=== PATIENT | male | born 1955 | race Caucasian/White ===

== ENCOUNTER 2020-01-22 08:20 | Outpatient (CLI) | payer BC, SELFPAY ==
--- NOTE | 2020-01-22 08:48 | ECG_ITS ---
Measurements Intervals [place] Rate: 57 P: 51 AL: 165 QRS: 24 QRSD: 98 T: 8 QT: 393 QTc: 384 Interpretive Statements SINUS BRADYCARDIA BORDERLINE ST ABNORMALITY- INFERIOR LEADS BORDERLINE ECG Electronically Signed On 01-22-2020 11:14:46 CDT by Cosme Aguilar D.O.
[2020-01-22 09:02] LABS: Add Urine Microscopic? NO; Appearance Urine Clear (Clear); Bilirubin Urine Negative (Negative); Blood Urine Negative (Negative); Color Urine Yellow (Yellow); Glucose Urine UA Negative (Negative); Ketones Urine Negative (Negative); Leukocyte Esterase Ur Negative LEU/UL (NEGATIVE); Nitrate Urine Negative (Negative); Protein Urine Negative (Negative); Specific Grav Ur 1.018 (1.001-1.035); Urobilinogen Urine Negative mg/dL (<2.0)
[2020-01-22 09:04] LABS: Basophils Percent Auto 0.7 % (0.2-1.2); Eosinophils Absolute Auto 0.2 K/mm3 (0-0.3); Eosinophils Percent Auto 3.6 % (0-4.4); Hematocrit 48.7 % (42.0-52.0); Hemoglobin 16.6 g/dL (14.0-18.0); Immature Granulocyte Absolute 0.01 K/mm3 (0.00-0.031); Immature Granulocyte Percent A 0.2 % (0-0.5); Lymphocytes Absolute Auto 1.84 K/mm3 (0.9-3.2); Lymphocytes Percent Auto 31.2 % (18.3-44.2); Mean Corpuscular HGB Conc 34.1 g/dl (32-36); Mean Corpuscular Hemoglobin 32.6 pg (26-34); Mean Corpuscular Volume 95.7 fl (80-100); Mean Platelet Volume 10.9 fl (7.4-10.4); Monocytes Absolute Auto 0.6 K/mm3 (0.1-0.6); Monocytes Percent Auto 10.7 % (2.6-8.5); Neutrophils Absolute Auto 3.2 K/mm3 (1.3-6.7); Neutrophils Percent Auto 53.6 % (45.5-73.1); Platelet Count Result 194 k/mm3 (150-375); Red Blood Count 5.09 M/mm3 (4.6-6.20); Red Cell Distribution Width 13.4 % (11.5-14.5); White Blood Count 5.9 K/mm3 (4.5-10.0)
[2020-01-22 09:16] LABS: Alanine Aminotransferase 35 U/L (4-50); Albumin Level 4.5 g/dL (3.5-5.1); Alkaline Phosphatase 45 U/L (38-126); Anion Gap 7 mmol/L (8-16); Aspartate Amino Transferase 39 U/L (17-59); Bilirubin,Total 1.5 mg/dL (0.2-1.3); Blood Urea Nitrogen 18 mg/dL (9-20); Calcium 9.1 mg/dL (8.4-10.2); Carbon Dioxide 28 mmol/L (22-30); Chloride 100 mmol/L (98-107); Cholesterol 164 mg/dL (0-200); Estimated Glomerular Filt Rate > 60; Glucose 96 mg/dL (75-110); HDL Direct 62 mg/dL; Sodium 135 mmol/L (137-145); Triglycerides 55 mg/dL (<150)
[2020-01-22 09:25] LABS: LDL Cholesterol Direct 90 mg/dL
[2020-01-22 09:29] LABS: Potassium 4.4 mmol/L (3.4-5.0)
[2020-01-22 09:44] LABS: Prostate Specific Antigen 0.4 ng/mL (< OR = 4.0)
[2020-01-26 11:00] LABS: Testosterone Free 231.4 pg/mL (46.0-224.0); Testosterone Total 1051 ng/dL (250-1100)
== END 2020-01-22 08:21 | disposition home or self-care (01) ==
LOC: ANHLAB 08:25
PROVIDERS: PCP Internal Medicine; Visit Provider Internal Medicine
DX: E78.5 Hyperlipidemia, unspecified (principal); M19.022 Primary osteoarthritis, left elbow; Z76.89 Persons encountering health services in other specified circumstances; Z12.5 Encounter for screening for malignant neoplasm of prostate
CPT/HCPCS: 36415; 80053; 80061; 81003; 84153; 84402; 84403; 84443; 85025; 93005; G0103

== ENCOUNTER 2024-11-18 16:21 | Outpatient (CLI) | payer MEDICARE, OTHER, SELFPAY ==
--- NOTE | ~2024-11-18 | CT_ITS ---
EXAMINATION: CT shoulder RT wo con DATE: 11/18/2024 16:48 INDICATION: Shoulder lesion TECHNIQUE: High resolution computed tomography (CT) of the right shoulder was performed without intra venous contrast. Additional sagittal and coronal reconstructions were performed. Dose Arpit The dose-length product was 394.99 mGy-cm. COMPARISON: None FINDINGS: Bone alignment is normal. No fracture. Mild cystic change along the anterior facet of the greater tub erosity which can be seen in setting of rotator cuff disease. No other suspicious lytic or blastic yolie ne lesions. Specifically no lesion corresponding to the region of concern at the scapular body. Mild glenohumeral osteoarthritis with mild nonuniform joint space narrowing and marginal osteophytes along the posterior and posterior inferior rim of the glenoid. No glenohumeral joint effusion. Moderate ac romioclavicular osteoarthritis. No asymmetric atrophy of the musculature of the rotator cuff or shoul hayden girdle. No pathologically enlarged right axillary or hilar lymphadenopathy. Visualized portions o f the lungs are clear. IMPRESSION: 1. No suspicious lytic or blastic bone lesions. Specifically no correlate for the artifactual appeara nce of expansile lytic lesion at the scapular body. 2. Mild right glenohumeral and moderate acromioclavicular osteoarthritis. Reviewed, dictated and finalized at location A. IMPRESSION: 1. No suspicious lytic or blastic bone lesions. Specifically no correlate for t he artifactual appearance of expansile lytic lesion at the scapular body. 2. Mild right glenohumeral and moderate acromioclavicular osteoarthritis.
== END 2024-11-18 16:22 | disposition home or self-care (01) ==
PROVIDERS: PCP Family Medicine; Visit Provider Nurse Practitioner Family
DX: M75.91 Shoulder lesion, unspecified, right shoulder (principal); M19.011 Primary osteoarthritis, right shoulder
CPT/HCPCS: 73200